=== PATIENT | female | born 1975 | race Caucasian/White ===

== ENCOUNTER 2020-07-25 08:01 | Day surgery (SDC) | payer OTHER ==
[2020-07-25] MEDS ORDERED: Depo-Medrol 40 MG/ML IM ONE (08:02)
[2020-07-25] MEDS ORDERED: Xylocaine 1% Vial 30 ML PF IJ ONE (08:02)
[2020-07-25] MEDS ORDERED: Sodium Chloride 0.9(Preservative Free) 10 ML IJ ONE (08:02)
[2020-07-25] MEDS ORDERED: DIPRIVAN 200 MG/20 ML IV ONE (10:25)
[2020-07-25] MEDS ORDERED: Ketamine HCl 50 MG/ML ONE (10:25)
--- NOTE | 2020-07-25 11:02 | XRAY ---
Indication: Lumbar ANA MARIA. Intraoperative fluoroscopy provided for 25 seconds. 2 digital spot images submitted for interpretation demonstrates midline posterior needle tip projecting just posterior to the L4-L5 interspace. Small amount of contrast injected for needle tip placement. Correlate with intraoperative findings/report.
--- NOTE | 2020-07-25 11:04 | XRAY ---
25 seconds fluoroscopy time in surgery for lumbar ANA MARIA.
[2020-07-25] MEDS ORDERED: Lactated Ringers 1,000 ML IV ONE (16:32)
== END 2020-07-25 10:50 | disposition home or self-care (01) ==
LOC: SDC-PAIN 08:01
PROVIDERS: ATTEND Psychiatry & Neurology Pain Medicine
DX: M54.16 Radiculopathy, lumbar region (principal); E11.9 Type 2 diabetes mellitus without complications; I10 Essential (primary) hypertension; E78.5 Hyperlipidemia, unspecified; K21.9 Gastro-esophageal reflux disease without esophagitis; Z79.899 Other long term (current) drug therapy
CPT/HCPCS: 64493; 72100; 77003; 82947; 84703; J1030; J2001; J2704

== ENCOUNTER 2020-10-03 06:32 | Day surgery (SDC) | payer OTHER ==
[2020-10-03] MEDS ORDERED: BUPIVACAINE 0.5% VIAL IJ ONE (06:33)
[2020-10-03] MEDS ORDERED: Depo-Medrol 40 MG/ML IM ONE (06:33)
[2020-10-03] MEDS ORDERED: DIPRIVAN 200 MG/20 ML IV ONE (07:58)
--- NOTE | 2020-10-03 09:24 | XRAY ---
Indication: Bilateral SI joint injection. Intraoperative fluoroscopy provided for 23 seconds. 4 digital spot images submitted for interpretation demonstrate posterior needle tip projecting inferior left and right SI joints. Correlate with intraoperative findings/report.
--- NOTE | 2020-10-03 09:24 | XRAY ---
23 seconds fluoroscopy time in surgery for bilateral SI joint injections.
[2020-10-03] MEDS ORDERED: Lactated Ringers 1,000 ML IV ONE (15:58)
== END 2020-10-03 08:30 | disposition home or self-care (01) ==
LOC: SDC-PAIN 06:32
PROVIDERS: ATTEND Psychiatry & Neurology Pain Medicine
DX: M46.1 Sacroiliitis, not elsewhere classified (principal); E11.9 Type 2 diabetes mellitus without complications; I10 Essential (primary) hypertension; K21.9 Gastro-esophageal reflux disease without esophagitis; E78.5 Hyperlipidemia, unspecified; Z79.899 Other long term (current) drug therapy
CPT/HCPCS: 72202; 77002; 82947; 84703; J1030; J2704

== ENCOUNTER 2020-11-07 06:59 | Day surgery (SDC) | payer OTHER ==
[2020-11-07] MEDS ORDERED: Depo-Medrol 40 MG/ML IM ONE (07:00)
[2020-11-07] MEDS ORDERED: LIDOCAINE HCL 2% 100 MG/5 ML IJ ONE (07:00)
[2020-11-07] MEDS ORDERED: DIPRIVAN 200 MG/20 ML IV ONE (08:45)
--- NOTE | 2020-11-07 10:44 | XRAY ---
Indication: Bilateral L4-S1 MBB. Intraoperative fluoroscopy provided 14 seconds. Single digital spot image submitted for interpretation demonstrates posterior needle tips projecting over the expected left and right L4-S1 nerve roots. Correlate with intraoperative findings/report.
--- NOTE | 2020-11-07 10:49 | XRAY ---
18 seconds fluoroscopy time in surgery for bilateral L4-S1 MBB.
[2020-11-07] MEDS ORDERED: Lactated Ringers 1,000 ML IV ONE (15:39)
== END 2020-11-07 09:16 | disposition home or self-care (01) ==
LOC: SDC-PAIN 06:59
PROVIDERS: ATTEND Psychiatry & Neurology Pain Medicine
DX: M47.816 Spondylosis without myelopathy or radiculopathy, lumbar region (principal); E11.9 Type 2 diabetes mellitus without complications; I10 Essential (primary) hypertension; K21.9 Gastro-esophageal reflux disease without esophagitis; E78.5 Hyperlipidemia, unspecified; Z79.899 Other long term (current) drug therapy
CPT/HCPCS: 64493; 64494; 72020; 77002; 82947; 84703; J1030; J2704

== ENCOUNTER 2021-03-20 07:07 | Day surgery (SDC) | payer OTHER ==
[2021-03-20] MEDS ORDERED: Depo-Medrol 40 MG/ML IM ONE (07:08)
[2021-03-20] MEDS ORDERED: Xylocaine 1% Vial 30 ML PF IJ ONE (07:08)
[2021-03-20] MEDS ORDERED: Sodium Chloride 0.9(Preservative Free) 10 ML IJ ONE (07:08)
[2021-03-20] MEDS ORDERED: DIPRIVAN 200 MG/20 ML IV ONE (07:58)
--- NOTE | 2021-03-20 10:24 | XRAY ---
Indication: Lumbar ANA MARIA. Intraoperative fluoroscopy provided for 33 seconds. 2 lateral digital spot image submitted for interpretation demonstrates posterior needle tip projecting just posterior to the lumbosacral junction interspace. Small amount of contrast injected for needle tip placement. Correlate with intraoperative findings/report.
--- NOTE | 2021-03-20 12:10 | XRAY ---
33 seconds of fluoroscopy was used in surgery for a lumbar ANA MARIA.
[2021-03-20] MEDS ORDERED: Lactated Ringers 1,000 ML IV ONE (16:24)
== END 2021-03-20 09:05 | disposition home or self-care (01) ==
LOC: SDC-PAIN 07:07
PROVIDERS: ATTEND Psychiatry & Neurology Pain Medicine
DX: M54.16 Radiculopathy, lumbar region (principal); E11.9 Type 2 diabetes mellitus without complications; Z79.899 Other long term (current) drug therapy
CPT/HCPCS: 62321; 72100; 77003; 82947; 84703; J1030; J2001; J2704; Q9966